=== PATIENT | male | born 1950 | race Caucasian/White ===

== ENCOUNTER 2017-01-30 14:05 | Inpatient (IN) | payer MEDICARE, OTHER ==
[~2017-01-30] VITALS: Ht 190.5 cm; Wt 102.1 kg
[2017-01-30 15:32] LABS: ASPARTATE AMINO TRANSFERASE 192 U/L (15-37); BLOOD UREA NITROGEN 11 mg/dL (7-18)
[2017-01-30] MEDS ORDERED: AMPICILLIN/SULBACTAM 3 GM in SODIUM CHLORIDE 0.9% 100 ML IV ONE (16:30)
[2017-01-30 17:09] LABS: DAU SCREEN DISCLAIMER
[2017-01-30] MEDS ORDERED: POLYETHYLENE GLYCOL 17 GM PACKET PO PRN (17:30)
[2017-01-30] MEDS ORDERED: LABETALOL 5MG/ML, 20ML IVPush PRN (17:30)
[2017-01-30] MEDS ORDERED: ONDANSETRON 2MG/ML, 2ML IVPush PRN (17:30)
[2017-01-30] MEDS ORDERED: LIDOCAINE 1%, 20ML ONE (17:55)
[2017-01-30] MEDS ORDERED: SODIUM BICARBONATE 4.2%, 5ML ONE (17:55)
[2017-01-30] MEDS ORDERED: ALBUMIN HUMAN 25% 100 ML IV PRN (18:00)
[2017-01-30] MEDS ORDERED: THIAMINE 100MG TABLET PO ONE (18:00)
[2017-01-30] MEDS: LACTULOSE 20 GM/30 ML UDC PO SCH ×2 (18:00→20:51)
[2017-01-30 18:27] LABS: ACETAMINOPHEN < 2 mcg/mL (10-30)
[2017-01-30 19:36] VITALS: BP 126/72
[2017-01-30 20:04] VITALS: BP 126/72
[2017-01-30] MEDS ORDERED: FUROSEMIDE 40 MG/4 ML IV SCH (21:00)
[2017-01-31 01:22] VITALS: BP 117/60
[2017-01-31 06:09] LABS: BLOOD UREA NITROGEN 12 mg/dL (7-18)
[2017-01-31 06:12] LABS: ASPARTATE AMINO TRANSFERASE 193 U/L (15-37)
[2017-01-31 07:06] VITALS: BP 134/67
[2017-01-31] MEDS: SENNA/DOCUSATE TABLET PO SCH (09:00)
[2017-01-31] MEDS: LACTULOSE 20 GM/30 ML UDC PO SCH ×3 (10:43→20:20)
[2017-01-31] MEDS: SPIRONOLACTONE 100 MG TABLET PO SCH (10:43)
[2017-01-31] MEDS: FOLIC ACID 1 MG TABLET PO SCH (10:43)
[2017-01-31 12:46] VITALS: BP 147/74
[2017-01-31] MEDS: FUROSEMIDE 40 MG/4 ML IV SCH (13:28)
[2017-01-31] MEDS: OXYcodone IR 5MG TABLET PO PRN ×3 (13:32→22:33)
[2017-01-31 19:16] VITALS: BP 126/69
[2017-02-01 01:07] VITALS: BP 124/69
[2017-02-01] MEDS: OXYcodone IR 5MG TABLET PO PRN ×5 (03:08→18:22)
[2017-02-01 06:07] LABS: ASPARTATE AMINO TRANSFERASE 172 U/L (15-37); BLOOD UREA NITROGEN 10 mg/dL (7-18)
[2017-02-01 07:05] VITALS: BP 124/71
[2017-02-01] MEDS: SPIRONOLACTONE 100 MG TABLET PO SCH (08:08)
[2017-02-01] MEDS: FOLIC ACID 1 MG TABLET PO SCH (08:08)
[2017-02-01] MEDS: SENNA/DOCUSATE TABLET PO SCH (08:09)
[2017-02-01] MEDS: FUROSEMIDE 40 MG/4 ML IV SCH (08:09)
[2017-02-01] MEDS: LACTULOSE 20 GM/30 ML UDC PO SCH ×3 (08:10→20:41)
[2017-02-01 12:36] VITALS: BP 134/72
[2017-02-01 18:16] VITALS: BP 142/75
[2017-02-02] MEDS: OXYcodone IR 5MG TABLET PO PRN ×2 (00:26→05:12)
[2017-02-02 01:16] VITALS: BP 135/75
[2017-02-02 05:33] LABS: BLOOD UREA NITROGEN 10 mg/dL (7-18)
[2017-02-02] MEDS ORDERED: RIFA550T PO (06:35)
[2017-02-02] MEDS ORDERED: SPIR100T PO (06:35)
[2017-02-02] MEDS ORDERED: FOLI-17 PO (06:35)
[2017-02-02] MEDS ORDERED: LACT20SO13 PO (06:35)
[2017-02-02] MEDS ORDERED: FURO40TA6 PO (06:35)
[2017-02-02 07:06] VITALS: BP 124/70
[2017-02-02] MEDS: FOLIC ACID 1 MG TABLET PO SCH (07:53)
[2017-02-02] MEDS: SPIRONOLACTONE 100 MG TABLET PO SCH (07:53)
[2017-02-02] MEDS: SENNA/DOCUSATE TABLET PO SCH (07:54)
[2017-02-02] MEDS: LACTULOSE 20 GM/30 ML UDC PO SCH (07:54)
[2017-02-02] MEDS: FUROSEMIDE 40 MG/4 ML IV SCH (07:54)
== END 2017-02-02 12:46 | disposition home or self-care (01) | DRG 441 ==
LOC: ED 16:01 → EDIP 17:09 → 3NE 17:59
PROVIDERS: ADMIT Hospitalist; ATTEND Hospitalist
PROC: 0W9G3ZZ Drainage of Peritoneal Cavity, Percutaneous Approach (ICD-10-PCS; principal; 2017-01-30)
DX: K72.00 Acute and subacute hepatic failure without coma (principal); E43 Unspecified severe protein-calorie malnutrition; E87.1 Hypo-osmolality and hyponatremia; E72.20 Disorder of urea cycle metabolism, unspecified; B15.9 Hepatitis A without hepatic coma; B19.10 Unspecified viral hepatitis B without hepatic coma; D68.9 Coagulation defect, unspecified; E87.2 Acidosis; K76.6 Portal hypertension; L03.115 Cellulitis of right lower limb; L03.116 Cellulitis of left lower limb; K70.11 Alcoholic hepatitis with ascites; B19.20 Unspecified viral hepatitis C without hepatic coma; D69.59 Other secondary thrombocytopenia; D75.89 Other specified diseases of blood and blood-forming organs; I87.8 Other specified disorders of veins; K74.60 Unspecified cirrhosis of liver; K82.8 Other specified diseases of gallbladder; K80.20 Calculus of gallbladder without cholecystitis without obstruction; Y90.0 Blood alcohol level of less than 20 mg/100 ml; R16.1 Splenomegaly, not elsewhere classified; J98.4 Other disorders of lung; Z80.0 Family history of malignant neoplasm of digestive organs; Z87.891 Personal history of nicotine dependence; Z68.28 Body mass index [BMI] 28.0-28.9, adult
CPT/HCPCS: 36415; 49083; 71010; 74181; 76700; 80048; 80053; 80307; 80329; 81003; 82040; 82042; 82140; 82607; 82728; 82746; 82945; 83540; 83550; 83605; 83615; 83690; 83735; 84100; 84157; 84439; 84443; 85025; 85610; 86704; 86706; 86708; 86803; 87040; 87070; 87075; 87205; 87340; 89051; 93005; 93306; 93922; 93970; 96374; J0295; J1940; J3490; P9047; G0480

== ENCOUNTER 2017-03-21 10:53 | Emergency (ER) | payer MEDICARE ==
[~2017-03-21] VITALS: Ht 190.5 cm; Wt 110.0 kg
[~2017-03-21 10:53] MED LIST: FOLI-17 PO; FURO40TA6 PO; LACT20SO13 PO; RIFA550T PO; SPIR100T PO
[2017-03-21] MEDS ORDERED: SODIUM CHLORIDE 0.9% 1,000 ML IV ONE (11:20)
[2017-03-21 11:58] LABS: ASPARTATE AMINO TRANSFERASE 191 U/L (15-37); BLOOD UREA NITROGEN 10 mg/dL (7-18)
[2017-03-21 12:31] LABS: DIFF TOTAL CELLS COUNTED 100 CELL DIFF
[2017-03-21 12:34] LABS: VERIFY COUNTS? YES
[2017-03-21] MEDS ORDERED: LIDOCAINE 2%, 20ML ONE (12:41)
[2017-03-21 14:09] VITALS: BP 117/69
== END 2017-03-21 14:26 | disposition home or self-care (01) ==
LOC: ED 12:49
DX: K70.11 Alcoholic hepatitis with ascites (principal); K70.31 Alcoholic cirrhosis of liver with ascites; R10.84 Generalized abdominal pain; G89.29 Other chronic pain
CPT/HCPCS: 36415; 49083; 80053; 85025; 85610; 93970; 99285; J3490

== ENCOUNTER 2017-04-06 18:04 | Emergency (ER) | payer OTHER ==
[~2017-04-06] VITALS: Ht 190.5 cm; Wt 106.2 kg
[2017-04-06 18:05] VITALS: BP 145/49
== END 2017-04-06 20:00 | disposition home or self-care (01) ==
LOC: ED 19:54
DX: K70.31 Alcoholic cirrhosis of liver with ascites (principal)
CPT/HCPCS: 49083; 99284

== ENCOUNTER 2017-04-10 21:34 | Inpatient (IN) | payer MEDICARE, OTHER ==
[~2017-04-10] VITALS: Ht 190.5 cm; Wt 110.7 kg
[~2017-04-10 21:34] MED LIST changes: -RIFA550T PO; +RIFA550T4 PO
[2017-04-10 22:22] LABS: HEMATOCRIT 39.7 % (39.2-51.8); HEMOGLOBIN 13.8 g/dL (13.7-18.0); WHITE BLOOD COUNT 14.6 x10^3/uL (3.4-10)
[2017-04-10 22:40] LABS: ASPARTATE AMINO TRANSFERASE 137 U/L (15-37); BLOOD UREA NITROGEN 30 mg/dL (7-18)
[2017-04-10] MEDS ORDERED: DEXTROSE 50%, 50ML VIAL ONE (23:14)
[2017-04-10] MEDS ORDERED: DEXTROSE 50%, 50ML SYRINGE IVPush ONE (23:30)
[2017-04-10] MEDS ORDERED: D5%-0.9% NACL 1,000 ML IV SCH (23:30)
[2017-04-11] MEDS ORDERED: GLUCAGON 1 MG IM PRN (00:30)
[2017-04-11] MEDS ORDERED: POLYETHYLENE GLYCOL 17 GM PACKET PO PRN (00:30)
[2017-04-11] MEDS ORDERED: DEXTROSE 50%, 50ML SYRINGE IVPush PRN (00:30)
[2017-04-11] MEDS ORDERED: DEXTROSE 4 GM TAB.CHEW PO PRN (00:30)
[2017-04-11] MEDS ORDERED: SODIUM CHLORIDE 0.9% 1,000 ML IV SCH (00:30)
[2017-04-11] MEDS ORDERED: ONDANSETRON 2MG/ML, 2ML IVPush PRN (00:30)
[2017-04-11] MEDS ORDERED: BISACODYL 10 MG SUPP PR PRN (00:30)
[2017-04-11 02:00] VITALS: BP 142/76
[2017-04-11] MEDS: HEPARIN 5,000 UNITS/ML, 1ML SQ SCH ×3 (02:09→18:23)
[2017-04-11 06:20] LABS: HEMOGLOBIN 12.8 g/dL (13.7-18.0); WHITE BLOOD COUNT 13.7 x10^3/uL (3.4-10)
[2017-04-11 06:30] LABS: ASPARTATE AMINO TRANSFERASE 131 U/L (15-37); BLOOD UREA NITROGEN 27 mg/dL (7-18)
[2017-04-11 07:15] LABS: POTASSIUM,URINE RANDOM 17 mmol/L
[2017-04-11 08:00] VITALS: BP 103/62
[2017-04-11] MEDS: SODIUM CHLORIDE FLUSH 10ML SYR IVF SCH ×2 (10:06→21:00)
[2017-04-11] MEDS: SENNA/DOCUSATE TABLET PO SCH (10:06)
[2017-04-11] MEDS ORDERED: FUROSEMIDE 40 MG/4 ML IV ONE (12:30)
[2017-04-11 13:23] VITALS: BP 117/64
[2017-04-11] MEDS ORDERED: OXYcodone IR 5MG TABLET PO PRN (14:00)
[2017-04-11 19:14] VITALS: BP 102/61
[2017-04-11] MEDS: OXYcodone IR 5MG TABLET PO PRN (21:13)
[2017-04-12 01:03] LABS: BLOOD UREA NITROGEN 30 mg/dL (7-18)
[2017-04-12 01:08] VITALS: BP 105/58
[2017-04-12] MEDS ORDERED: SODIUM CHLORIDE 0.9% 1,000 ML IV SCH (01:30)
[2017-04-12] MEDS: HEPARIN 5,000 UNITS/ML, 1ML SQ SCH ×3 (01:53→17:48)
[2017-04-12] MEDS: OXYcodone IR 5MG TABLET PO PRN ×4 (04:00→17:55)
[2017-04-12 05:20] LABS: HEMATOCRIT 37.1 % (39.2-51.8); HEMOGLOBIN 12.6 g/dL (13.7-18.0); WHITE BLOOD COUNT 13.1 x10^3/uL (3.4-10)
[2017-04-12 05:32] LABS: BLOOD UREA NITROGEN 30 mg/dL (7-18)
[2017-04-12 07:12] VITALS: BP 103/59
[2017-04-12] MEDS ORDERED: LIDOCAINE 1%, 20ML ONE (07:38)
[2017-04-12] MEDS: SENNA/DOCUSATE TABLET PO SCH (08:55)
[2017-04-12] MEDS: SODIUM CHLORIDE FLUSH 10ML SYR IVF SCH ×2 (08:55→19:16)
[2017-04-12 09:04] LABS: BLOOD UREA NITROGEN 30 mg/dL (7-18)
[2017-04-12] MEDS ORDERED: FUROSEMIDE 40 MG/4 ML IV ONE (11:30)
[2017-04-12 14:10] VITALS: BP 102/63
[2017-04-12 19:35] VITALS: BP 94/55
[2017-04-13] MEDS: OXYcodone IR 5MG TABLET PO PRN ×5 (00:02→21:50)
[2017-04-13 00:46] VITALS: BP 104/60
[2017-04-13] MEDS: HEPARIN 5,000 UNITS/ML, 1ML SQ SCH ×3 (02:49→19:42)
[2017-04-13 06:56] VITALS: BP 114/64
[2017-04-13] MEDS ORDERED: FUROSEMIDE 40 MG TABLET PO SCH (09:00)
[2017-04-13] MEDS: SENNA/DOCUSATE TABLET PO SCH (09:43)
[2017-04-13] MEDS: SODIUM CHLORIDE FLUSH 10ML SYR IVF SCH ×2 (09:43→19:43)
[2017-04-13 14:21] VITALS: BP 99/60
[2017-04-13] MEDS ORDERED: SPIRONOLACTONE 25 MG TABLET PO ONE (14:30)
[2017-04-13 19:06] VITALS: BP 106/58
[2017-04-14 01:06] VITALS: BP 107/64
[2017-04-14] MEDS: HEPARIN 5,000 UNITS/ML, 1ML SQ SCH ×3 (03:13→19:21)
[2017-04-14] MEDS: OXYcodone IR 5MG TABLET PO PRN ×3 (04:37→19:22)
[2017-04-14 05:12] LABS: HEMATOCRIT 43.6 % (39.2-51.8); HEMOGLOBIN 14.8 g/dL (13.7-18.0); WHITE BLOOD COUNT 19.4 x10^3/uL (3.4-10)
[2017-04-14 05:15] LABS: BLOOD UREA NITROGEN 40 mg/dL (7-18)
[2017-04-14 05:58] LABS: DIFF TOTAL CELLS COUNTED 100 CELL DIFF
[2017-04-14 06:00] LABS: ANISOCYTOSIS 1+; VERIFY COUNTS? YES
[2017-04-14 06:43] VITALS: BP 118/65
[2017-04-14] MEDS: SPIRONOLACTONE 25 MG TABLET PO SCH (09:02)
[2017-04-14] MEDS: SODIUM CHLORIDE FLUSH 10ML SYR IVF SCH ×2 (09:02→19:21)
[2017-04-14] MEDS: FUROSEMIDE 40 MG TABLET PO SCH ×2 (09:03→09:24)
[2017-04-14] MEDS: SENNA/DOCUSATE TABLET PO SCH (09:03)
[2017-04-14 14:00] VITALS: BP 106/61
[2017-04-14 14:32] LABS: BLOOD UREA NITROGEN 43 mg/dL (7-18)
[2017-04-14] MEDS ORDERED: SODIUM POLYSTYRENE SULFONATE ORAL SUSP PO ONE (15:30)
[2017-04-14 16:31] LABS: POTASSIUM,URINE RANDOM 34 mmol/L
[2017-04-14 18:42] VITALS: BP 111/56
[2017-04-14 23:01] LABS: BLOOD UREA NITROGEN 48 mg/dL (7-18)
[2017-04-15 02:46] VITALS: BP 110/64
[2017-04-15] MEDS: HEPARIN 5,000 UNITS/ML, 1ML SQ SCH ×3 (03:17→19:56)
[2017-04-15 05:24] LABS: HEMATOCRIT 40.9 % (39.2-51.8); WHITE BLOOD COUNT 19.8 x10^3/uL (3.4-10)
[2017-04-15 05:43] LABS: ASPARTATE AMINO TRANSFERASE 114 U/L (15-37); BLOOD UREA NITROGEN 49 mg/dL (7-18)
[2017-04-15 08:00] VITALS: BP 118/65
[2017-04-15] MEDS: SENNA/DOCUSATE TABLET PO SCH (08:17)
[2017-04-15] MEDS: SODIUM CHLORIDE FLUSH 10ML SYR IVF SCH ×2 (08:17→19:56)
[2017-04-15] MEDS: SPIRONOLACTONE 25 MG TABLET PO SCH (08:17)
[2017-04-15] MEDS: OXYcodone IR 5MG TABLET PO PRN ×2 (08:18→22:39)
[2017-04-15] MEDS ORDERED: FUROSEMIDE 20 MG TABLET PO SCH (09:00)
[2017-04-15] MEDS ORDERED: SODIUM CHLORIDE 3% 500 ML IV SCH ×3 (12:00→12:30)
[2017-04-15] MEDS: SODIUM BICARBONATE 650 MG TABLET PO SCH ×2 (12:26→19:56)
[2017-04-15] MEDS ORDERED: INSTRUCTION SEE COMMENTS XX PRN (12:30)
[2017-04-15 13:39] VITALS: BP 117/64
[2017-04-15 19:28] VITALS: BP 115/62
[2017-04-15] MEDS: CEFTRIAXONE PMX 2GM/50ML 50 ML IV SCH (19:56)
[2017-04-15] MEDS: AZITHROMYCIN 500 MG in SODIUM CHLORIDE 0.9% 250 ML IV SCH (21:12)
[2017-04-15] MEDS: SODIUM CHLORIDE 3% 500 ML IV SCH (22:33)
[2017-04-16 01:13] VITALS: BP 107/63
[2017-04-16] MEDS: HEPARIN 5,000 UNITS/ML, 1ML SQ SCH ×3 (05:05→21:57)
[2017-04-16] MEDS: OXYcodone IR 5MG TABLET PO PRN ×5 (05:18→23:31)
[2017-04-16 05:43] LABS: BLOOD UREA NITROGEN 56 mg/dL (7-18)
[2017-04-16 05:44] LABS: HEMATOCRIT 41.6 % (39.2-51.8); HEMOGLOBIN 14.3 g/dL (13.7-18.0); WHITE BLOOD COUNT 22.5 x10^3/uL (3.4-10)
[2017-04-16 08:20] VITALS: BP 114/70
[2017-04-16] MEDS: SODIUM CHLORIDE FLUSH 10ML SYR IVF SCH ×2 (08:35→21:56)
[2017-04-16] MEDS: SENNA/DOCUSATE TABLET PO SCH (08:35)
[2017-04-16] MEDS: SODIUM BICARBONATE 650 MG TABLET PO SCH ×2 (08:35→21:56)
[2017-04-16] MEDS ORDERED: TOLVAPTAN 15 MG TABLET PO SCH (09:00)
[2017-04-16] MEDS: SODIUM CHLORIDE 3% 500 ML IV SCH (12:35)
[2017-04-16 14:41] VITALS: BP 109/65
[2017-04-16 19:48] VITALS: BP 116/72
[2017-04-16] MEDS: CEFTRIAXONE PMX 2GM/50ML 50 ML IV SCH (19:55)
[2017-04-16] MEDS: AZITHROMYCIN 500 MG in SODIUM CHLORIDE 0.9% 250 ML IV SCH (21:56)
[2017-04-17 01:52] VITALS: BP 103/57
[2017-04-17] MEDS: OXYcodone IR 5MG TABLET PO PRN ×4 (04:10→22:22)
[2017-04-17 04:31] LABS: HEMATOCRIT 40.4 % (39.2-51.8); HEMOGLOBIN 13.7 g/dL (13.7-18.0); WHITE BLOOD COUNT 22.1 x10^3/uL (3.4-10)
[2017-04-17] MEDS: HEPARIN 5,000 UNITS/ML, 1ML SQ SCH ×3 (05:52→21:37)
[2017-04-17 07:20] VITALS: BP 101/55
[2017-04-17] MEDS: SENNA/DOCUSATE TABLET PO SCH (08:28)
[2017-04-17] MEDS: SODIUM BICARBONATE 650 MG TABLET PO SCH ×2 (08:28→21:37)
[2017-04-17] MEDS: SODIUM CHLORIDE FLUSH 10ML SYR IVF SCH ×2 (08:28→21:37)
[2017-04-17 11:22] LABS: BLOOD UREA NITROGEN 69 mg/dL (7-18)
[2017-04-17 12:55] VITALS: BP 98/60
[2017-04-17 19:46] VITALS: BP 104/66
[2017-04-17] MEDS: CEFTRIAXONE PMX 2GM/50ML 50 ML IV SCH (21:36)
[2017-04-17] MEDS: AZITHROMYCIN 500 MG in SODIUM CHLORIDE 0.9% 250 ML IV SCH (22:07)
[2017-04-18] MEDS: HEPARIN 5,000 UNITS/ML, 1ML SQ SCH ×2 (06:00→13:23)
[2017-04-18 08:17] LABS: BLOOD UREA NITROGEN 75 mg/dL (7-18)
[2017-04-18 08:18] LABS: HEMATOCRIT 40.9 % (39.2-51.8); HEMOGLOBIN 13.8 g/dL (13.7-18.0); WHITE BLOOD COUNT 31.5 x10^3/uL (3.4-10)
[2017-04-18 09:10] VITALS: BP 98/58
[2017-04-18] MEDS: SODIUM BICARBONATE 650 MG TABLET PO SCH ×2 (09:31→19:56)
[2017-04-18] MEDS: SODIUM CHLORIDE FLUSH 10ML SYR IVF SCH ×2 (09:31→20:00)
[2017-04-18] MEDS: SENNA/DOCUSATE TABLET PO SCH (09:31)
[2017-04-18] MEDS: OXYcodone IR 5MG TABLET PO PRN ×3 (09:36→17:29)
[2017-04-18 11:19] LABS: ANISOCYTOSIS 1+; VERIFY COUNTS? YES
[2017-04-18 11:20] LABS: DIFF TOTAL CELLS COUNTED 100 CELL DIFF
[2017-04-18] MEDS: SODIUM CHLORIDE 0.9% IV SCH (13:23)
[2017-04-18] MEDS: SODIUM ACETATE IV SCH (13:23)
[2017-04-18 15:40] VITALS: BP 99/64
[2017-04-18] MEDS: CEFTRIAXONE PMX 2GM/50ML 50 ML IV SCH (19:59)
[2017-04-18 20:00] VITALS: BP 102/70
[2017-04-18] MEDS: AZITHROMYCIN 500 MG in SODIUM CHLORIDE 0.9% 250 ML IV SCH (21:04)
[2017-04-19] MEDS ORDERED: DEXTROSE 50%, 50ML SYRINGE ONE
[2017-04-19] MEDS: SODIUM ACETATE IV SCH ×3 (00:25→20:24)
[2017-04-19] MEDS: SODIUM CHLORIDE 0.9% IV SCH ×3 (00:25→20:24)
[2017-04-19] MEDS: OXYcodone IR 5MG TABLET PO PRN ×3 (00:28→15:46)
[2017-04-19 01:54] VITALS: BP 105/66
[2017-04-19 04:25] LABS: HEMATOCRIT 42.7 % (39.2-51.8); HEMOGLOBIN 14.5 g/dL (13.7-18.0); WHITE BLOOD COUNT 34.4 x10^3/uL (3.4-10)
[2017-04-19 04:51] LABS: DIFF TOTAL CELLS COUNTED 100 CELL DIFF
[2017-04-19 04:53] LABS: ANISOCYTOSIS 1+; VERIFY COUNTS? YES
[2017-04-19] MEDS: SENNA/DOCUSATE TABLET PO SCH (08:36)
[2017-04-19] MEDS: SODIUM BICARBONATE 650 MG TABLET PO SCH ×2 (08:37→22:16)
[2017-04-19] MEDS: SODIUM CHLORIDE FLUSH 10ML SYR IVF SCH (08:37)
[2017-04-19 11:06] VITALS: BP 94/56
[2017-04-19 11:07] LABS: BLOOD UREA NITROGEN 88 mg/dL (7-18)
[2017-04-19] MEDS: SODIUM POLYSTYRENE SULFONATE ORAL SUSP PO ONE ×2 (14:00→16:09)
[2017-04-19] MEDS: ALBUMIN HUMAN 25% 50 ML IV SCH (16:08)
[2017-04-19 16:30] VITALS: BP 95/66
[2017-04-19] MEDS: LACTOBACILLUS CHEW TABLET PO SCH ×2 (17:00→20:24)
[2017-04-19] MEDS: CEFTRIAXONE PMX 2GM/50ML 50 ML IV SCH (20:23)
[2017-04-19] MEDS: AZITHROMYCIN 500 MG in SODIUM CHLORIDE 0.9% 250 ML IV SCH (22:13)
[2017-04-19] MEDS ORDERED: DEXTROSE 50%, 50ML SYRINGE IVPush PRN (22:30)
[2017-04-19 22:58] LABS: ABG COLLECTION SITE RIGHT RADIAL; COLLATERAL CIRCULATION TESTING NORMAL
[2017-04-19] MEDS ORDERED: LORazepam 2 MG/ML, 1ML IVPush PRN (23:00)
[2017-04-19 23:02] LABS: HEMATOCRIT 35.3 % (39.2-51.8); HEMOGLOBIN 11.7 g/dL (13.7-18.0)
[2017-04-19 23:15] LABS: IS PT STATUS REG ER OR PRE ER? NO
[2017-04-19] MEDS: MORPHINE SULFATE 4 MG/ML, 1ML IVPush PRN (23:38)
[2017-04-20 00:57] VITALS: BP 68/56
[2017-04-20] MEDS: ALBUMIN HUMAN 25% 50 ML IV SCH ×2 (01:04→09:28)
[2017-04-20] MEDS: MORPHINE SULFATE 4 MG/ML, 1ML IVPush PRN (01:40)
[2017-04-20] MEDS: LACTOBACILLUS CHEW TABLET PO SCH ×2 (06:00→11:00)
[2017-04-20 06:14] LABS: BLOOD UREA NITROGEN 90 mg/dL (7-18)
[2017-04-20 06:18] LABS: ASPARTATE AMINO TRANSFERASE 915 U/L (15-37)
[2017-04-20] MEDS: SODIUM CHLORIDE FLUSH 10ML SYR IVF SCH ×2 (06:26→09:00)
[2017-04-20 06:30] LABS: HEMATOCRIT 36.3 % (39.2-51.8); HEMOGLOBIN 12.3 g/dL (13.7-18.0); WHITE BLOOD COUNT 24.7 x10^3/uL (3.4-10)
[2017-04-20] MEDS ORDERED: DEXTROSE 50%, 50ML SYRINGE IVPush PRN (06:30)
[2017-04-20] MEDS ORDERED: DEXTROSE 4 GM TAB.CHEW PO PRN (06:30)
[2017-04-20] MEDS ORDERED: GLUCAGON 1 MG IM PRN (06:30)
[2017-04-20 07:01] LABS: DIFF TOTAL CELLS COUNTED 100 CELL DIFF
[2017-04-20 07:03] LABS: ANISOCYTOSIS 1+; VERIFY COUNTS? YES
[2017-04-20] MEDS ORDERED: SODIUM CHLORIDE FLUSH 10ML SYR IVF SCH (09:00)
[2017-04-20] MEDS: SODIUM BICARBONATE 650 MG TABLET PO SCH (09:00)
[2017-04-20] MEDS: SENNA/DOCUSATE TABLET PO SCH (09:00)
[2017-04-20] MEDS ORDERED: SODIUM CHLORIDE 0.9%, 250ML ONE (10:30)
[2017-04-20] MEDS ORDERED: MIDAZOLAM 1 MG/ML, 5ML ONE (10:30)
[2017-04-20] MEDS ORDERED: DEXTROSE 50%, 50ML SYRINGE ONE (10:30)
[2017-04-20] MEDS ORDERED: VECURONIUM 10 MG ONE (10:30)
[2017-04-20] MEDS ORDERED: EPINEPHRINE SYRINGE 0.1 MG/ML, 10ML ONE (10:30)
[2017-04-20] MEDS ORDERED: NOREPINEPHRINE 1 MG/ML, 4ML ONE (10:30)
[2017-04-20] MEDS ORDERED: SODIUM BICARB 8.4%, 50ML SYRINGE ONE (10:30)
[2017-04-20] MEDS ORDERED: INSULIN REGULAR 100 UNITS/ML, 3ML VIAL ONE (10:30)
[2017-04-20 10:58] LABS: ABG COLLECTION SITE LEFT RADIAL; COLLATERAL CIRCULATION TESTING NORMAL
[2017-04-20] MEDS: SODIUM CHLORIDE 0.9% IV SCH (11:00)
[2017-04-20] MEDS: SODIUM ACETATE IV SCH (11:00)
[2017-04-20] MEDS ORDERED: VASOPRESSIN 100 UNIT in SODIUM CHLORIDE 0.9% 495 ML IV PRN ×2 (11:00→11:20)
[2017-04-20] MEDS ORDERED: NOREPINEPHRINE 4 MG in SODIUM CHLORIDE 0.9% 246 ML IV PRN (11:00)
[2017-04-20 11:33] LABS: HEMATOCRIT 31.6 % (39.2-51.8); HEMOGLOBIN 10.4 g/dL (13.7-18.0)
[2017-04-20 11:39] LABS: BLOOD UREA NITROGEN 92 mg/dL (7-18)
[2017-04-20 11:46] LABS: ASPARTATE AMINO TRANSFERASE 1695 U/L (15-37)
[2017-04-20] MEDS ORDERED: PHENYLEPHRINE 10 MG/ML ONE (11:59)
[2017-04-20] MEDS ORDERED: NOREPINEPHRINE 8 MG in SODIUM CHLORIDE 0.9% 242 ML IV PRN (12:00)
[2017-04-20] MEDS ORDERED: CODE BLUE RESPONSE XX ONE (12:00)
[2017-04-20] MEDS ORDERED: SODIUM BICARB 8.4%,50ML SYR. 150 MEQ in DEXTROSE 5% 1,000 ML IV ONE (12:00)
[2017-04-20] MEDS ORDERED: PHENYLEPHRINE 40 MG in SODIUM CHLORIDE 0.9% 246 ML IV PRN (12:00)
[2017-04-20 12:14] LABS: DIFF TOTAL CELLS COUNTED 100 CELL DIFF
[2017-04-20 12:18] LABS: ANISOCYTOSIS 1+; VERIFY COUNTS? YES
[2017-04-20] MEDS ORDERED: EPINEPHRINE 2 MG in SODIUM CHLORIDE 0.9% 248 ML IV PRN (13:00)
[2017-04-20] MEDS ORDERED: PIPERACILLIN/TAZO/PMX 4.5GM 100 ML IV SCH (13:00)
== END 2017-04-20 14:45 | disposition expired | DRG 871 ==
LOC: ED 23:59 → EDIP 04-11 00:12 → 3NE 04-11 01:21 → 5SO 04-19 16:39 → CCU 04-20 10:39
PROVIDERS: ADMIT Internal Medicine
PROC: 0W9G3ZZ Drainage of Peritoneal Cavity, Percutaneous Approach (ICD-10-PCS; principal; 2017-04-12)
PROC: 02HV33Z Insertion of Infusion Device into Superior Vena Cava, Percutaneous Approach (ICD-10-PCS; 2017-04-16)
PROC: B548ZZA Ultrasonography of Superior Vena Cava, Guidance (ICD-10-PCS; 2017-04-16)
PROC: 0BH17EZ Insertion of Endotracheal Airway into Trachea, Via Natural or Artificial Opening (ICD-10-PCS; 2017-04-20)
PROC: 5A1935Z Respiratory Ventilation, Less than 24 Consecutive Hours (ICD-10-PCS; 2017-04-20)
DX: A41.9 Sepsis, unspecified organism (principal); E43 Unspecified severe protein-calorie malnutrition; K76.7 Hepatorenal syndrome; N17.0 Acute kidney failure with tubular necrosis; J96.01 Acute respiratory failure with hypoxia; K65.2 Spontaneous bacterial peritonitis; J18.9 Pneumonia, unspecified organism; D68.4 Acquired coagulation factor deficiency; D68.9 Coagulation defect, unspecified; R18.8 Other ascites; N39.0 Urinary tract infection, site not specified; E87.1 Hypo-osmolality and hyponatremia; B18.1 Chronic viral hepatitis B without delta-agent; E22.2 Syndrome of inappropriate secretion of antidiuretic hormone; J93.9 Pneumothorax, unspecified; W07.XXXA Fall from chair, initial encounter; D69.6 Thrombocytopenia, unspecified; K74.60 Unspecified cirrhosis of liver; E86.0 Dehydration; B18.2 Chronic viral hepatitis C; B96.1 Klebsiella pneumoniae [K. pneumoniae] as the cause of diseases classified elsewhere; D75.89 Other specified diseases of blood and blood-forming organs; E16.2 Hypoglycemia, unspecified; E86.1 Hypovolemia; E87.5 Hyperkalemia; K72.90 Hepatic failure, unspecified without coma; Z66 Do not resuscitate; Z80.0 Family history of malignant neoplasm of digestive organs; Z86.74 Personal history of sudden cardiac arrest; Z87.891 Personal history of nicotine dependence; Y93.89 Activity, other specified; Y92.89 Other specified places as the place of occurrence of the external cause; Y99.8 Other external cause status; Z68.30 Body mass index [BMI] 30.0-30.9, adult
CPT/HCPCS: 36415; 36569; 36600; 49083; 71010; 76700; 76937; 77001; 80048; 80053; 81001; 82042; 82140; 82436; 82533; 82550; 82570; 82607; 82746; 82803; 82947; 82962; 83735; 83930; 83935; 84100; 84132; 84133; 84295; 84300; 84443; 84484; 85014; 85018; 85025; 85610; 87040; 87077; 87081; 87086; 87186; 92950; 93005; 93306; 94002; 99285; J0456; J0696; J1644; J1815; J1940; J2250; J2543; J3490; J7042; J7070; P9047; C1751; J2060; J2370; J7030; J7040; J7050